=== PATIENT | female | born 1945 | race Caucasian/White ===

== ENCOUNTER 2019-07-20 04:46 | Inpatient (IN) ==
[2019-07-13 16:33] LABS: Appearance,Urine CLEAR; Bacteria,Urine 0 /hpf (0); Bilirubin,Urine NEG (NEG); Color,Urine STRAW; Glucose,Urine (UA) NEGATIVE (NEG); Ketones,Urine NEG (NEG); Leukocyte Esterase,Urine 75 /uL (NEG); Mucus,Urine FEW /hpf (0); Nitrate,Urine NEG (NEG); Protein,Urine NEG (NEG); Specific Gravity,Urine 1.006 (1.000-1.035); Urine Blood NEG mg/dL (<0.03); Urine RBC 0 /hpf (0-1); Urine Squamous Epithelial Cell 3 /hpf (0-4); Urine WBC 5 /hpf (0-4); Urobilinogen,Urine NEG (NEG)
[2019-07-13 18:59] LABS: Basophils # (Auto) 0 K/mcL (0.0-0.3); Basophils % (Auto) 0.5 % (0.0-2.0); Eosinophils # (Auto) 0.1 K/mcL (0.0-0.7); Eosinophils % (Auto) 1.9 % (0.0-7.0); Granulocytes % (Auto) 47.8 % (38.0-78.0); Hematocrit 39.2 % (36.0-48.0); Hemoglobin 12.8 g/dL (12.0-15.0); Lymphocytes # (Auto) 2.8 K/mcL (1.5-4.8); Lymphocytes % (Auto) 40.9 % (15.5-49.0); Mean Cell Volume 97.7 fL (80.0-100.0); Mean Corpuscular HGB Conc 32.7 g/dL (31.0-36.0); Mean Platelet Volume 7.9 fL (7.4-10.4); Monocytes # (Auto) 0.6 K/mcL (0.1-0.9); Monocytes % (Auto) 8.9 % (1.0-12.0); Platelet Count 294 K/mcL (140-440); RBC 4.01 M/mcL (4.00-5.20); WBC 6.9 K/mcL (4.5-11.0)
[2019-07-13 19:00] LABS: Blood Urea Nitrogen 11 mg/dl (8-23); Calcium 9.7 mg/dl (8.6-10.4); Carbon Dioxide 29 mmol/L (22-30); Chloride 100 mmol/L (96-108); Glomerular Filtration Rate 87; Glucose 93 mg/dL (70-105)
[2019-07-20] MEDS ORDERED: SCOPOLAMINE 1 PATCH PATCH TOPICAL PRN (05:00)
[2019-07-20] MEDS ORDERED: IPRATROPIUM/ALBUTEROL 3 ML AMPUL.NEB NEB PRN ×2 (05:00→09:45)
[2019-07-20] MEDS ORDERED: CELECOXIB 200 MG CAPSULE PO SCH (06:00)
[2019-07-20] MEDS ORDERED: PREGABALIN 75 MG CAPSULE PO SCH (06:00)
[2019-07-20] MEDS ORDERED: oxyCODONE 10 MG TAB.ER.12H PO SCH (06:00)
[2019-07-20] MEDS ORDERED: ceFAZolin 2 GM in DEXTROSE 5% IN WATER 50 ML IV SCH (06:00)
[2019-07-20] MEDS ORDERED: 0.9 % SODIUM CHLORIDE 9 ML, KETOROLAC 30 MG, ROPIVACAINE HCL/PF 49.5 ML, EPINEPHrine 0.... IJ SCH (06:00)
[2019-07-20 07:07] LABS: Appearance,Urine CLEAR; Bacteria,Urine FEW /hpf (0); Bilirubin,Urine NEG (NEG); Color,Urine YELLOW; Culture Indicated,Urine YES; Glucose,Urine (UA) NEGATIVE (NEG); Ketones,Urine NEG (NEG); Leukocyte Esterase,Urine 75 /uL (NEG); Mucus,Urine FEW /hpf (0); Nitrate,Urine POS (NEG); Protein,Urine NEG (NEG); Specific Gravity,Urine 1.012 (1.000-1.035); Urine Blood NEG mg/dL (<0.03); Urine RBC 1 /hpf (0-1); Urine Squamous Epithelial Cell < 1 /hpf (0-4); Urine Transitional Epi Cells < 1 /hpf (0-2); Urine WBC 5 /hpf (0-4); Urobilinogen,Urine NEG (NEG)
[2019-07-20] MEDS ORDERED: CIPROFLOXACIN 400 MG/200 ML BAG IV ONE (07:36)
[2019-07-20] MEDS ORDERED: ROPIVACAINE HCL/PF 20 ML VIAL IJ ONE (07:40)
[2019-07-20] MEDS ORDERED: LIDOCAINE HCL/PF 100 MG/5 ML SYRINGE IV ONE (07:40)
[2019-07-20] MEDS ORDERED: ONDANSETRON 4 MG/2 ML VIAL IV ONE (07:40)
[2019-07-20] MEDS ORDERED: PROPOFOL 200 MG/20 ML VIAL IV ONE (07:40)
[2019-07-20] MEDS ORDERED: DEXAMETHASONE 10 MG/ML VIAL IV ONE (07:40)
[2019-07-20] MEDS ORDERED: MIDAZOLAM 5 MG/5 ML VIAL IV ONE (07:40)
[2019-07-20] MEDS ORDERED: ePHEDrine 50 MG/ML AMPUL IV ONE (07:40)
[2019-07-20] MEDS ORDERED: TRANEXAMIC ACID 1,000 MG/10 ML VIAL IV ONE ×2 (07:40→10:19)
[2019-07-20] MEDS ORDERED: ACETAMINOPHEN 1,000 MG/100 ML BOTTLE IV ONE (09:45)
[2019-07-20] MEDS ORDERED: NALOXONE HCL 0.4 MG/ML VIAL IV PRN (09:45)
[2019-07-20] MEDS ORDERED: BENZOCAINE/MENTHOL 1 LOZENGE PO PRN ×2 (09:45→10:19)
[2019-07-20] MEDS ORDERED: LACTATED RINGERS 1,000 ML IV SCH (09:45)
[2019-07-20] MEDS ORDERED: PROMETHAZINE 25 MG/ML VIAL IV PRN (09:45)
[2019-07-20] MEDS ORDERED: LACTATED RINGERS 250 ML IV PRN (09:45)
[2019-07-20] MEDS ORDERED: MEPERIDINE 25 MG/ML SYRINGE IV PRN (09:45)
[2019-07-20] MEDS ORDERED: fentaNYL 100 MCG/2 ML VIAL IV PRN (09:45)
[2019-07-20] MEDS ORDERED: diphenhydrAMINE 50 MG/ML VIAL IV PRN (09:45)
[2019-07-20] MEDS ORDERED: FLUMAZENIL 0.1 MG/ML ML IV PRN (09:45)
[2019-07-20] MEDS ORDERED: ONDANSETRON 4 MG/2 ML VIAL IV PRN ×2 (09:45→10:19)
--- NOTE | 2019-07-20 10:18 | Brief Operative Note ---
Date of procedure: 07/20/19 Pre-op diagnosis: left knee OA Post-op diagnosis: same Procedure: Left total knee arthroplasty Grafts/Implants: Yes (sunita triatholone femur/tibia siz3 4, patella 33mm) Anesthesia: GETA, spinal Findings: knee OA, varus knee Complications: none Surgeon: Sidney Mayo Superintendent [employer]: Marky Eason Estimated blood loss (cc): 30 Tourniquet Time (Minutes): 109 Specimens Removed/Pathology: none sent Condition: stable Disposition: PACU
[2019-07-20] MEDS ORDERED: MAGNESIUM HYDROXIDE 30 ML ORAL.SUSP PO PRN (10:19)
[2019-07-20] MEDS ORDERED: POLYETHYLENE GLYCOL 3350 17 GM PACKET PO PRN (10:19)
[2019-07-20] MEDS ORDERED: METHOCARBAMOL 1,000 MG/10 ML VIAL IV PRN (10:19)
[2019-07-20] MEDS ORDERED: BISACODYL 10 MG SUPP.RECT PR PRN (10:19)
[2019-07-20] MEDS ORDERED: FLEETS ADULT ENEMA PR PRN (10:19)
--- NOTE | 2019-07-20 11:23 | XRay Report ---
CLINICAL INFORMATION: Post-Op Total Knee COMPARISON: None. FINDINGS: Total knee prostheses is anatomically aligned. No osseous abnormality. Periarticular gas and soft tissue swelling seen as expected. IMPRESSION: Negative Interpreted and Authenticated by: Ok Ricci 07/20/19
[2019-07-20] MEDS: LACTATED RINGERS 1,000 ML IV SCH (11:57)
[2019-07-20] MEDS: 0.9 % SODIUM CHLORIDE 10 ML SYRINGE IV SCH ×2 (13:17→21:33)
--- NOTE | 2019-07-20 14:22 | Operative Note ---
DATE OF OPERATION: 07/20/2019 PREOPERATIVE DIAGNOSIS: Left knee osteoarthritis. POSTOPERATIVE DIAGNOSIS: Left knee osteoarthritis. PROCEDURE PERFORMED: Left total knee arthroplasty. SURGEON: Sidney Mayo M.D. PHD INTERNSHIP: Leif Orosco MD Second surgeon was required to complete the entire case in a safe and efficient manner. No qualified PA-C were available to help. He aided in case planning, decision making along throught the case. ANESTHESIA: Spinal with general. IV FLUIDS: 1700 mL lactated Ringer's. ESTIMATED BLOOD LOSS: Less than 50 mL. TOURNIQUET TIME: 109 minutes at 250 mmHg. ANTIBIOTICS: 2 grams Ancef and one dose of ciprofloxacin 400 mg for aymptomatic UTI. PATHOLOGY/LAB: None. INTRAOPERATIVE COMPLICATIONS: None apparent. IMPLANTS: Erasmo CR Triathlon knee. [place] size 4 Baseplate, size 4 femoral component 33mm patella standard 9 mm poly. Regular bone cement. INDICATIONS FOR PROCEDURE: The patient is a 73-year-old female with knee osteoarthritis with near [id number] wear in the medial compartment. The lateral and patellar femoral were less affected. She has tried nonoperative treatment initially with injections in the past and now the pain is limiting her daily function and affecting her daily life. I discussed treatment options including repeat injections versus activity modification, therapy versus total knee arthroplasty. She has made up her mind already that she wants to proceed with a total knee arthroplasty. I had a lengthy discussion with her regarding the risks and benefits and the surgery itself. I provided her with multiple handouts to read prior to surgery. Overall, she is healthy, non-diabetic, non-tobacco user with no systemic illnesses. I discussed expectations and the postoperative rehab course. Given her options, she wished to proceed in that fashion. DESCRIPTION OF PROCEDURE: The patient was met in the preoperative holding area where the site was verified and marked with the patient's input. She was then taken back to the operating room where she underwent successful spinal nerve block along with general anesthesia. She was placed in supine position. She had a padded tourniquet placed about the proximal thigh. Her right lower extremity had a sequential compression device placed and secured to the table. Her left lower extremity was then prepped and draped in the usual sterile fashion with ChloraPrep. Surgical timeout was performed to verify patient's identity, correct procedure being performed, correct extremity being operated on. Everybody was in agreement. Esmarch was utilized to exsanguinate the extremity and the tourniquet was inflated to 250 mmHg. A midline incision was made down to the level of medial tibial tubercle. Skin was sharply incised down to the peritenon. Medial and lateral flaps were developed, more medial than lateral. Irrisept was used to place into the wound prior to making our arthrotomy. We created a medial parapatellar arthrotomy after marking this tissue with a marking pen for improved alignment when repairing the capsulotomy. The joint was entered demonstrating severe [id number] arthritis in the medial compartment, as well as to a lesser degree in the lateral compartment. There was complete cartilage loss over the trochlea as well. We created our limited medial exposure along the medial tibial and releasing the capsule at the joint line itself. Laterally excised a portion of the fat pad to improve our visualization. Incised the anterior horn of the medial and lateral meniscus as well as the ACL. At this point, we exposed the patellar further utilizing towel clamps. Patella thickness measure 22 mm. Patella cut was made down to 12mm. This was then protected with a metal plate and was able to sublux her patella to further expose the knee. I placed the tibial and femoral verification pins and then subsequently placed our pins for the arrays for the Hong portion of the case. This was placed outside of the incision, distal to the tibial tubercle approximately a handbreadth, as well as proximal to the superior pole of the patella a handbreadth. These were completed and verified. At this point, Obtained our initial verification process with the Hong itself, finding the hip center of rotation, the medial and lateral malleoli, and the points on the femur and tibia. Once this was complete, assessed the ligamentous laxity of the flexion and extension of the knee. The knee was able to get out to full extension and flexion was greater than 130 degrees. It was in slight varus alignment overall. At this point utilizing osteotomes at 10 degrees of knee flexion, equal tensin was placed in the medial and lateral compartments. These numbers were captured.. This was repeated for the knee at 95 degrees of flexion. These numbers were then utilized to create our operative template. In order to balance the ligaments, I brought the tibial cut proximal. The tibial component was flexed to 5 degrees. Th tibia was placed in 3 degrees of varus and 1 degree of varus in the femur. External rotation was already almost at 3 degrees with 3 degrees of posterior slope. This allowed the medial gaps in flexion and extension to be 17 and lateral to be 18. I felt this was adequate as the trochlea was well aligned within the normal anatomy as well, and I was happy with the overall plan. At this point utilizing the Hong, her bone cuts were made. We ensured that we protected our patellar tendon with the tibial cut initially. Subsequently we cut the femoral cuts as well. Once this was all completed, all bony debris was removed from the knee. The wound was irrigated again with Irrisept. I excised the remaining medial and lateral menisci. Removed the posterior osteophytes. At this point, we placed a tibial baseplate trial. Initially, I attempted a 3, but this was under covered, and I was able to place a size 4 baseplate with no overhang. I did place this in sexternal rotation with the center being over the medial third of the tibial tubercle. This was then pinned. Boss reamer was utilized to followed by the tibial keel punch. This guide was removed. We placed a trial tibial baseplate with a keel as this has improved stability. We placed our femoral component and the tibial insert. The overall position I was happy with. It felt stable and the range of motion with flexion was greater than 130 degrees with gravity and then extension was approximately 5 degrees shy of full, but passively could correct to full extension. She was stable with varus and valgus at 10 degrees as well as 90 degrees. Drilled the two holes in the femur for the final implant. At this point, the wound was copiously irrigated. I also placed the patella template and drilled the holes for the peg. The cement was being mixed on the back table. I copiously irrigated with pulse lavage of the tibia and exposed it fully with medial and lateral retractors. The CO2 was utilized to further debride the bone of any fatty material as well as fluid. I did drill several little drill holes on the medial side of the plateau as it was slightly sclerotic. I placed cement onto the tibial plateau and into the keeled position and then placed the baseplate impacted in place. This was then completed for the femur as well. The excess cement was removed. The trial poly was inserted as well. The knee was brought out to full extension. The patella implant was then placed in similar fashion. At this point, while the cement was hardening, I placed a diluted 0.35% Betadine solution in the knee and let it set for 3 minutes. This was then pulse lavaged with 1 liter of normal saline. At this point, I removed the trial poly insert and placed in the real poly. The joint was reduced and again was stable throughout range of motion and was happy with the overall feel of the joint. The patella tracked centrally. The capsulotomy was then closed along the superior, middle and inferior border of the patella itself with a #2 FiberWire. I then overran this from the whole capsulotomy with Stratafix.. The inferior portion was closed with 2-0 Vicryl. The subcutaneous tissue was closed with 3-0 Vicryl and with a running 3-0 Monocryl. I then placed edmar along with Steri-Strips. The skin was then cleaned and dried. All the pin sites were closed with edmar themselves. We placed Webril along with Arsen wrap. The patient woke from anesthesia and was transferred to PACU in stable condition. POSTOPERATIVE PLAN: The patient will be admitted for overnight and begin physical therapy and with the potential for discharged tomorrow. SHANNON:eve Job ID: [id number] Doc ID: [id number] Sidney MURILLO
[2019-07-20] MEDS ORDERED: ceFAZolin 1 GM VIAL ONE (14:45)
[2019-07-20] MEDS: ceFAZolin 1 GM VIAL IV SCH ×2 (14:48→23:48)
[2019-07-20] MEDS: oxyCODONE HCL 5 MG TABLET PO PRN ×2 (14:50→21:24)
[2019-07-20] MEDS: ACETAMINOPHEN 1,000 MG/100 ML BOTTLE IV SCH (17:57)
[2019-07-20] MEDS ORDERED: amLODIPine 5 MG TABLET PO SCH (21:00)
[2019-07-20] MEDS ORDERED: SENNOSIDES 1 TABLET PO SCH (21:00)
[2019-07-20] MEDS: DOCUSATE SODIUM 100 MG CAPSULE PO SCH (21:21)
[2019-07-20] MEDS: ASPIRIN 81 MG TAB.CHEW CHEWED SCH (21:21)
[2019-07-21] MEDS ORDERED: GABAPENTIN 300 MG CAPSULE ONE (00:03)
[2019-07-21] MEDS ORDERED: KETOROLAC 30 MG/ML VIAL ONE (00:04)
[2019-07-21] MEDS: GABAPENTIN 300 MG CAPSULE PO SCH ×2 (00:05→11:03)
[2019-07-21] MEDS: LACTATED RINGERS 1,000 ML IV SCH (00:05)
[2019-07-21] MEDS: KETOROLAC 15 MG/ML VIAL IV SCH ×3 (00:06→13:12)
[2019-07-21] MEDS: ACETAMINOPHEN 1,000 MG/100 ML BOTTLE IV SCH ×2 (00:18→10:56)
[2019-07-21] MEDS ORDERED: KETOROLAC 15 MG/ML VIAL ONE (04:58)
[2019-07-21] MEDS: 0.9 % SODIUM CHLORIDE 10 ML SYRINGE IV SCH (05:36)
[2019-07-21 07:01] LABS: Hematocrit 34.2 % (36.0-48.0); Hemoglobin 11.3 g/dL (12.0-15.0)
[2019-07-21] MEDS ORDERED: LEVOTHYROXINE SODIUM 112 MCG TABLET PO SCH (07:30)
--- NOTE | 2019-07-21 08:00 | Orthopedic Progress Note ---
Subjective Patient information: Note initiated : 07/21/19 at 7:57 am Service Date, if different from initiated Date: [] Patient: Valencia Padron 73 y/o F admitted on 07/20/19 for Left Total Knee Arthroplasty Hong . Chief Complaint: [] Interval history: No acute events overnight. Pain controlled this AM. Has ambulated with walker. Voided. Tolerating PO intake and diet. No chest pain/shortness of breath. Objective Vital signs: Vital Signs Temp Pulse Resp BP BP Pulse Ox 07/21/19 07:35 99.4 F H 16 139/72 94 07/21/19 03:24 98.2 F 90 18 125/64 94 07/20/19 23:44 98.4 F 94 H 18 144/71 93 07/20/19 19:07 97.7 F 97 H 19 126/64 95 07/20/19 18:00 89 07/20/19 15:02 97.5 F 20 140/75 96 07/20/19 14:25 140/75 96 07/20/19 14:19 92 H 07/20/19 13:55 131/69 98 07/20/19 13:25 153/81 95 07/20/19 12:26 97.4 F 20 147/77 98 07/20/19 12:25 135/74 98 07/20/19 12:10 147/77 96 07/20/19 12:00 82 07/20/19 11:55 141/70 95 07/20/19 11:40 145/87 92 07/20/19 11:25 97.9 F 85 16 151/61 93 07/20/19 11:20 82 16 150/60 95 07/20/19 11:15 85 15 146/63 97 07/20/19 11:10 97.4 F 85 20 162/81 97 07/20/19 11:05 87 18 150/69 95 07/20/19 11:00 84 11 L 150/69 96 07/20/19 10:55 89 14 153/71 96 07/20/19 10:50 90 15 147/68 96 07/20/19 10:45 88 21 147/68 100 07/20/19 10:40 89 20 132/79 100 07/20/19 10:35 86 18 142/67 100 07/20/19 10:30 86 16 137/59 100 09/13/19 10:25 84 17 019/59 100 07/20/19 10:21 97.5 F 86 13 121/55 99 Intake and Output 07/20/19 07/21/19 07/21/19 21:59 05:59 13:59 Intake Total 220 1370 Output Total 1500 650 Balance -1280 720 Intake: IV 100 1010 Lactated Ringers 1,000 ml @ 75 910 mls/hr IV .[id number] RAYA Rx#: [id number] Oral 120 360 Output: Void Amount 1500 650 # of times incontinent of urine 0 Other: Urine Appearance Clear Urine Color Bright Yellow Bright Yellow Urine Odor Normal Normal # Voids 0 # Unmeasured Emesis 1 Weight 167 lb 8 oz Intake & Output: Intake & Output 07/20/19 07/21/19 07/21/19 21:59 05:59 13:59 Intake Total 220 1370 Output Total 1500 650 Balance -1280 720 Weight 167 lb 8 oz Intake: IV 100 1010 Lactated Ringers 1,000 ml @ 75 910 mls/hr IV .[id number] RAYA Rx#: [id number] Oral 120 360 Output: Void Amount 1500 650 # of times incontinent of urine 0 Other: Urine Appearance Clear Urine Color Bright Yellow Bright Yellow Urine Odor Normal Normal # Voids 0 # Unmeasured Emesis 1 Incision: Yes healing, Yes clean and dry Incision clean and dry: Yes Dressing: Yes clean, Yes dry, Yes intact Weight bearing status: as tolerated Range of motion: 0-90 degrees Neurological exam IM: Yes neurovascular intact - Labs CBC & BMP: 07/21/19 05:41 07/13/19 13:45 Labs: 07/21/19 07/13/19 05:41 13:36 Hgb 11.3 L 12.8 Hct 34.2 L 39.2 Assessment and Plan - Narrative A/P Narrative: POD 1 s/p L TKA doing well -changed dressing to silver dressing this AM- incision is healing well and no significant drainage on dressing -ROM 0-90 degrees, weight bearing as tolerated -oral pain medications -PT for exercises, mobilization -foot pumps, IS, ASA -Dispo: likely d/c today to home.
--- NOTE | 2019-07-21 08:29 | Discharge Summary ---
Providers - Providers Patient information: Note initiated : 07/21/19 at 8:23 am Service Date, if different from initiated Date: [] Patient: Valencia Padron 73 y/o F admitted on 07/20/19 for Left Total Knee Arthroplasty [facility] . Chief Complaint: [] Date of admission: 07/20/19 Discharge date: 07/21/19 Attending physician: Sidney Mayo Physical Therapy, Case management Hospitalization Hospital Course: 73 y/o female admitted for planned left total knee arthroplasty on July 20 2019. This was completed uneventfully and was admitted after surgery for recovery. On day of surgery patient voided, tolerated oral diet and worked with physical therapy. Her home medications were restarted. On POD 1 her pain was controlled on oral medications and was ambulating >100ft. Her motion was 0-90 degrees along with incision being clean and dry. Dressing was changed to aquacel dressing prior to discharge. Patient denied any chest pain or shortness of breath during her hospital stay. She was hemodynamically stable on room air. She will be discharge on her home medications and will start new ones consisting of 81mg of ASA, celebrex 200mg daily, neurotin 300mg three time a day, tylenol 500-1000mg three times a day, a muscle relaxer as needed, a stool softner and oxycodone 5-10mg every 4 hours as needed. Discharge diagnosis: Left knee osteoarthritis, hypertension, hypothyroidism Reason for admission: Left total knee arthroplasty Procedures: Left total knee arthroplasty Complications: None Exam - Exam Incision healing: Yes Incision draining: No Incision red: No Incision swollen: Yes (as expected from surgery) Incision inflamed: No Clean and dry: Yes Weight bearing status: as tolerated Range of motion: 0-90 degrees Ortho Discharge - TKA - Patient Instructions Diet: Regular Diet Activity: ambulate with assistive device, weight bearing as tolerated Total Knee Protocol: For Total Knee: Continue to work on ROM: can use stationary bike or a rocking chair to help keep your motion as it was while in the hospital 0-90 degrees. Work on gaining full extension of knee as mentioned- can rest knee straight on a coffee table foot stool. Posterior dislocation precautions provided. Hip abductor strengthening and gait training instructions provided. Apply ice therapy as instructed. Dressing Care: May shower in 2 days (Leave the dressing over incision in place with showers) Patient Education: Total Knee Replacement (DC) Additional Instructions: Keep the dressing over the knee in place x7 days. OK to take a shower with the dressing in place. However, do no submerge the dressing in water such as a bath or hot tub. After 7 days, can leave the incision uncovered as long as there is no drainage. The pin sites in the thigh and middle of the lower leg- take the dressing off when showering and can reapply dry dressing until healed. Use the [place] wrap to help keep the swelling down. Can ice every 3-4 hours for 15-20 minutes at a time- do not apply directly to skin. - Follow Up Plan Follow Up Appointments: Sidney Mayo MD [Physician] - 08/02/19 9:40 am Disposition: Home, Self-Care Prognosis: Good Rehab Potential: Good I certify that the patient requires SNF services: No Overall status at discharge: patient is progressing back to baseline - Orders For Discharge Prescriptions: Aspirin 81 mg CHEWED BID #60 tab.chew Prescription Printed Celecoxib [Celebrex] 200 mg PO DAILY #30 cap Prescription Printed Docusate Sodium [Colace] 100 mg PO BID #60 cap Prescription Printed Gabapentin [Neurontin] 300 mg PO TID #50 cap Prescription Printed Methocarbamol [Robaxin] 750 mg IV Q6HP PRN #10 vial PRN Reason: Muscle Spasm Prescription Printed oxyCODONE HCL [Roxicodone] 1 - 2 tab PO Q4HP PRN #50 tab PRN Reason: Pain Level 3-6 Prescription Printed Acetaminophen [Tylenol Extra Strength] 500 - 1,000 mg PO TIDP PRN #120 tab PRN Reason: Pain Prescription Printed Pending Studies Resuscitation Status Do Not Resuscitate Diet Regular Diet Start Tue 13 1021 Amlodipine Besylate (Norvasc) 5 mg PO HS [facility] Last Admin: 07/20/19 21:21 Dose: 5 mg Documented by: TOSHIA Aspirin (Aspirin) 81 mg CHEWED BID [facility] Last Admin: 07/20/19 21:21 Dose: 81 mg Documented by: TOSHIA Docusate Sodium (Colace) 100 mg PO BID [facility] Last Admin: 07/20/19 21:21 Dose: 100 mg Documented by: TOSHIA Gabapentin (Neurontin) 300 mg PO TID [facility] Last Admin: 07/21/19 00:05 Dose: 300 mg Documented by: TOSHIA Lactated Ringer's (Lactated Ringers) 1,000 mls @ 75 mls/hr IV .[id number] [facility] Last Admin: 07/21/19 00:05 Dose: 75 mls/hr Documented by: Infusion: 07/21/19 00:05 Dose: 75 mls/hr Documented by: Admin: 07/20/19 11:57 Dose: 75 mls/hr Documented by: MAGGIE Acetaminophen (Ofirmev) 1,000 mg in 100 mls @ 200 mls/hr IV Q8H [facility] Stop: 07/21/19 16:29 Last Infusion: 07/21/19 01:10 Dose: 0 mls/hr Documented by: Admin: 07/21/19 00:18 Dose: 200 mls/hr Documented by: Infusion: 07/20/19 18:27 Dose: 0 mls/hr Documented by: Admin: 07/20/19 17:57 Dose: 200 mls/hr Documented by: MATTHEW Ketorolac Tromethamine (Toradol) 15 mg IV Q6 [facility] Stop: 07/21/19 12:01 Last Admin: 07/21/19 05:36 Dose: 15 mg Documented by: Admin: 07/21/19 00:06 Dose: 15 mg Documented by: TOSHIA Ondansetron HCl (Zofran) 4 mg IV Q4HP PRN PRN Reason: Nausea And Vomiting Last Admin: 07/20/19 17:57 Dose: 4 mg Documented by: MATTHEW Oxycodone HCl (Roxicodone) 0 mg PO Q4HP PRN PRN Reason: PAIN LEVEL 3-6 Last Admin: 07/20/19 21:24 Dose: 10 mg Documented by: Admin: 07/20/19 14:50 Dose: 10 mg Documented by: MAGGIE Senna (Senokot) 2 tab PO HS [facility] Last Admin: 07/20/19 21:21 Dose: 2 tab Documented by: TOSHIA Sodium Chloride (Saline Flush) 10 ml IV Q8 [facility] Last Admin: 07/21/19 05:36 Dose: Not Given Documented by: Admin: 07/20/19 21:33 Dose: Not Given Documented by: Admin: 07/20/19 13:17 Dose: Not Given Documented by: [email or web address] Shift Summary 07/21/19 03:32 Shift Summary by Shala Whyte Patient alert and oriented x4. Medicated for pain with Roxicodone x1 for back of left knee pain with good effect. Also given scheduled Toradol, Ofirmev and Neurontin. Ambulated in hallway 100 ft using FWW, gait belt and standby assist. Void adequately. No nausea this shift. IVF LR at 75 mls infusing well on right hand. Right knee dressing CDI. Cryo-cuff applied. GENEVA boots on. Patient takes Amlodipine Besylate at home. Might need to clarify order prior to discharge. VSS. Initialized on 07/21/19 03:32 - END OF NOTE
[2019-07-21] MEDS ORDERED: LISINOPRIL 20 MG TABLET PO SCH (09:00)
[2019-07-21] MEDS ORDERED: PNEUMOCOCCAL 23-VAL P-SAC VAC 0.5 ML SYRINGE IM ONE (10:00)
[2019-07-21] MEDS: oxyCODONE HCL 5 MG TABLET PO PRN (11:03)
[2019-07-21] MEDS: DOCUSATE SODIUM 100 MG CAPSULE PO SCH (11:03)
[2019-07-21] MEDS: ASPIRIN 81 MG TAB.CHEW CHEWED SCH (11:03)
== END 2019-07-21 13:44 | disposition home or self-care (01) | DRG 470 ==
LOC: MEDSUR 04:46
PROVIDERS: ADMIT Orthopaedic Surgery; ATTEND Orthopaedic Surgery